=== PATIENT | female | born 1975 | race Caucasian/White ===

== ENCOUNTER → 2017-05-02 | Outpatient (REF) | LOC: COL.CARD 14:53 | DX: Z01.89 Encounter for other specified special examinations (principal) ==

== ENCOUNTER → 2017-05-02 | Outpatient (REF) | LOC: COL.CARD 14:50 | DX: Z01.89 Encounter for other specified special examinations (principal) ==

== ENCOUNTER → 2020-06-17 | Outpatient (CLI) | payer BC | LOC: MC.RAD 07:51 | DX: N64.52 Nipple discharge (principal) | CPT/HCPCS: Q9967 ==

== ENCOUNTER 2023-02-22 06:53 | Day surgery (SDC) | payer BC ==
[~2023-02-22] VITALS: Ht 160 cm; Wt 64.8 kg
[2023-02-22] MEDS ORDERED: CITALOPRAM PO (07:43)
[2023-02-22] MEDS ORDERED: FLONASEALLERGY NS (07:44)
[2023-02-22] MEDS ORDERED: AMBIEN 5MG TABLE5 MG PO (07:44)
[2023-02-22] MEDS ORDERED: TAMOXIFEN CITRA20 MG PO (07:45)
[2023-02-22] MEDS ORDERED: ZYRTEC 10MG10 MG PO (07:45)
[2023-02-22 07:57] VITALS: BP 94/69; PULSE 88; TEMP 97.6
[2023-02-22 11:30] VITALS: BP 119/68; PULSE 86; TEMP 98.3
[2023-02-22 11:45] VITALS: BP 110/54; PULSE 79
--- NOTE | 2023-02-22 13:01 | NUR ---
1130-PATIENT ARRIVED TO ENDO BAY 4 VIA CART, ALERT AND ORIENTED ON ARRIVAL. PATIENT AMBULATED TO RECLINER WITH SBA, WARM BLANKETS PROVIDED. VITAL SIGNS TAKEN, VSS. PATIENT DENIES PAIN OR NAUSEA. REPORT OBTAINED FROM DONA APONTE. PATIENT'S SPOUSE AT BEDSIDE. DR. DICKERSON AT BEDSIDE TO DISCUSS PROCEDURE, QUESTIONS INVITED. 1145-PATIENT TOLERATING PO INTAKE WELL, DENIES COMPLAINTS. VSS. 1155-DISCHARGE INSTRUCTIONS REVIEWED WITH PT AND SPOUSE, QUESTIONS INVITED. IV CATHETER DISCONTINUED, CATHETER TIP INTACT. PRESSURE HELD AND BANDAGE APPLIED. PATIENT CHANGED CLOTHING INDEPENDENTLY. 1210-PATIENT DISCHARGED HOME TO [facility] VIA WHEELCHAIR, ACCOMPANIED BY SPOUSE. ALL BELONGINGS AND DC PAPERWORK SENT WITH PT.
== END 2023-02-22 12:10 | disposition home or self-care (01) ==
LOC: SDCO 06:53
DX: Z12.11 Encounter for screening for malignant neoplasm of colon (principal); K63.5 Polyp of colon; J45.909 Unspecified asthma, uncomplicated; Z87.891 Personal history of nicotine dependence; Z80.0 Family history of malignant neoplasm of digestive organs
CPT/HCPCS: J2704; J7120